=== PATIENT | male | born 1995 | race Caucasian/White ===

== ENCOUNTER 2018-03-08 19:16 | Emergency (ER) | payer BC ==
[2018-03-08] MEDS ORDERED: predniSONE 20 MG TAB ONE (20:06)
[2018-03-08] MEDS ORDERED: AMOXicillin 250 MG CAP ONE (20:06)
== END 2018-03-08 20:15 | disposition home or self-care (01) ==
LOC: MADERS 19:16
DX: J02.0 Streptococcal pharyngitis (principal); F17.220 Nicotine dependence, chewing tobacco, uncomplicated
CPT/HCPCS: 99283; J7506

== ENCOUNTER 2018-05-05 18:12 | Emergency (ER) | payer BC ==
[2018-05-05] MEDS ORDERED: Ibuprofen 800 MG TAB ONE (18:57)
== END 2018-05-05 19:06 | disposition home or self-care (01) ==
LOC: MADERS 18:12
DX: S62.307A Unspecified fracture of fifth metacarpal bone, left hand, initial encounter for closed fracture (principal); F17.220 Nicotine dependence, chewing tobacco, uncomplicated; Z79.899 Other long term (current) drug therapy; X58.XXXA Exposure to other specified factors, initial encounter
CPT/HCPCS: 99283

== ENCOUNTER 2018-10-06 10:30 | Emergency (ER) | payer BC | END 2018-10-06 11:30 | disposition home or self-care (01) | LOC: MADERS 10:30 | DX: K40.90 Unilateral inguinal hernia, without obstruction or gangrene, not specified as recurrent (principal) | CPT/HCPCS: 99283 ==